=== PATIENT | female | born 1975 | race Caucasian/White ===

== ENCOUNTER 2018-11-05 10:11 | Outpatient (CLI) | payer OTHER, SELFPAY ==
--- NOTE | 2018-11-05 06:00 | DI.RAD_ITS ---
SYMPTOMS/DIAGNOSIS: CERVICAL SPONDYLOSIS, CERVICAL MEDIAL BRANCH BLOCK #1 PAIN CLINIC: Fluoroscopy Time: 29.0 Images submitted from the pain clinic demonstrate multiple needles projected over the right lateral position at the level of C 3 through C 5 in conjunction with a cervical medial branch block carried out by Dr. Wong. Please see the procedure report for further information.
[2018-11-05 10:26] VITALS: BP 135/85; PULSE 97; RESP 18; TEMP 37.1; O2SAT 100
[2018-11-05 11:03] VITALS: BP 117/73; PULSE 91; RESP 14; O2SAT 100
--- NOTE | 2018-11-05 11:03 | PDOC.PAIN ---
Pain Clinic Procedure Note Current Active Problems Problem Status Onset Cervical spondylosis Chronic CERVICAL MEDIAL BRANCH BLOCKS MARY WINSTON has been [facility] for cervical medial branch blocks. COMMENTS: Has neck pain radiating to her head and shoulder bit. She has multilevel degenerative changes. She sometimes has pain radiating to her arms. She is pending neurology evaluation and nerve testing. Patient was interviewed and the medical record reviewed. There were no medical, pharmacologic, radiographic or other structural contraindications to attempting fluoroscopically guided local anesthetic cervical medial branch blocks. Risks and expected side effects as well as potential benefit of the procedure were reviewed and voiced concerns addressed. The printed consent form was signed and witnessed. Standard time-out procedure was performed. Patient was placed in the { Left} lateral decubitus position on the fluoroscopy table and automated blood pressure cuff and pulse oximeter applied. The skin entry points for approaching the anatomic target points of the segmental medial branches of {Right C2/3 (T ON), 3, 4, 5 were identified with fluoroscopy and marked. Following thorough Chlorhexadine preparation of the skin and draping and 1% lidocaine infiltration of the skin entry points and subcutaneous tissues, a 25 gauge spinal needle was placed under fluoroscopic guidance down on to the target point for each respective segmental medial branch. Position was confirmed in A/P and leteral views with 0.25ml of omnipaque 240 injected at each level. At each point 0.3ml 0.5% bupivicaine was injected. Vital signs were stable throughout the procedure and were as recorded in the docflowsheet by the nursing staff. Follow up plans and appointments were discussed and patient was instructed to keep careful note of how the usual pain was modified by these injections. Specifically, the patient was asked to keep a pain diary for the next 24 hours using a numeric pain scale of 0-10 and report these results at the follow-up visit. Post procedure instruction was given as documented in the nursing documentation and having met discharge criteria, and was discharged from the [facility]. Based on the medial branches blocked today, if they patient has adequate relief and we are able to proceed to radiofrequency ablation, the treatment should result in the denervation of the {rightC2-3, C3-4, C4-5} {FACET JOINTS}. We would expect to denervate a total of {3} facets during the radiofrequency ablation. COMMENTS: Pain went from 6/10 to 4/10. She will follow-up for repeat medial branch block with 2% lidocaine or would consider cervical epidural steroid injection. CC: Fariba Sanders
[2018-11-05] MEDS: Omnipaque 240 MG/ML 50 ML BTL IJ (11:22)
[2018-11-05] MEDS: Bupivacaine 0.5% Pres-Free 10 ML VIAL IJ (11:23)
== END 2018-11-05 10:31 ==
PROVIDERS: PCP Family Medicine; Visit Provider Anesthesiology Pain Medicine
DX: M47.812 Spondylosis without myelopathy or radiculopathy, cervical region (principal)
CPT/HCPCS: 64490; 64491; 64492; 72040; Q9967

== ENCOUNTER 2018-11-25 11:56 | Outpatient (CLI) | payer OTHER, SELFPAY ==
--- NOTE | 2018-11-25 06:00 | DI.RAD_ITS ---
SYMPTOMS/DIAGNOSIS: CERVICAL SPONDYLOSIS, CERVICAL MEDIAL BRANCH BLOCK RT C-ARM FLUOROSCOPY OF THE CERVICAL SPINE: Fluoroscopy Time: 32.7 sec Fluoroscopy was provided for guidance with cervical spine pain clinic injection. Please see procedure note for details.
[2018-11-25 12:10] VITALS: BP 146/96; PULSE 94; RESP 16; TEMP 36.8; O2SAT 100
[2018-11-25] MEDS: Omnipaque 240 MG/ML 50 ML BTL IJ (12:45)
[2018-11-25] MEDS: Lidocaine 2% Pres-Free 5 ML VIAL IJ (12:45)
[2018-11-25 12:46] VITALS: BP 125/78; PULSE 98; RESP 17; O2SAT 100
--- NOTE | 2018-11-25 12:46 | PDOC.PAIN ---
Pain Clinic Procedure Note Current Active Problems Problem Status Onset Cervical spondylosis without myelopathy Acute CERVICAL MEDIAL BRANCH BLOCKS #2 MARY WINSTON has been referred to the [facility] for cervical medial branch blocks. COMMENTS: Great relief with the recent right sided CMBBs at C2-C5 CATRACHITO was interviewed and the medical record reviewed. There were no medical, pharmacologic, radiographic or other structural contraindications to attempting fluoroscopically guided local anesthetic cervical medial branch blocks. Risks and expected side effects as well as potential benefit of the procedure were reviewed with CATRACHITO, and CATRACHITO's voiced concerns addressed. The printed consent form was signed and witnessed. Standard time-out procedure was performed. CATRACHITOwas placed in the Left lateral decubitus position on the fluoroscopy table and automated blood pressure cuff and pulse oximeter applied. The skin entry points for approaching the anatomic target points of the segmental medial branches of Right C2-C5 were identified with fluoroscopy and marked. Following thorough Chlorhexadine preparation of the skin and draping and 1% lidocaine infiltration of the skin entry points and subcutaneous tissues, a 25 gauge spinal needle was placed under fluoroscopic guidance down on to the target point for each respective segmental medial branch. Position was confirmed in A/P and leteral views with 0.25ml of omnipaque 240 injected at each level. At each point 0.3ml 2% Lidocaine was injected. Rodrigo vital signs were stable throughout the procedure and were as recorded in the docflowsheet by the nursing staff. Follow up plans and appointments were discussed with CATRACHITO. CATRACHITO was instructed to keep careful note of how the usual pain was modified by these injections. Specifically, the patient was asked to keep a pain diary for the next 24 hours using a numeric pain scale of 0-10 and report these results at the follow-up visit. Post procedure instruction was given as documented in the nursing documentation and having met discharge criteria, Rodrigo was discharged from the [facility]. Based on the medial branches blocked today, if they patient has adequate relief and we are able to proceed to radiofrequency ablation, the treatment should result in the denervation of the right C2-C3, C3-C4, and C4-C5 FACET JOINTS. We would expect to denervate a total of 3 facets during the radiofrequency ablation. COMMENTS: She will call back with her 1-4 hour post-procedure pain scores. CC: Fariba Sanders
--- NOTE | 2018-11-25 12:49 | PDOC.PAIN_ITS ---
Pain Clinic Procedure Note Current Active Problems Problem Status Onset Cervical spondylosis without myelopathy Acute CERVICAL MEDIAL BRANCH BLOCKS #2 MARY WINSTON has been referred to the [facility] for cervical medial branch blocks. COMMENTS: Great relief with the recent right sided CMBBs at C2-C5 CATRACHITO was interviewed and the medical record reviewed. There were no medical, pharmacologic, radiographic or other structural contraindications to attempting fluoroscopically guided local anesthetic cervical medial branch blocks. Risks and expected side effects as well as potential benefit of the procedure were reviewed with CATRACHITO, and CATRACHITO's voiced concerns addressed. The printed consent form was signed and witnessed. Standard time-out procedure was performed. CATRACHITOwas placed in the Left lateral decubitus position on the fluoroscopy ta ble and automated blood pressure cuff and pulse oximeter applied. The skin entry points for approaching the anatomic target points of the segmental medial branches of Right C2-C5 were identified with fluoroscopy and marked. Following thorough Chlorhexadine preparation of the skin and draping and 1% lidocaine infiltration of the skin entry points and subcutaneous tissues, a 25 gauge spinal needle was placed under fluoroscopic guidance down on to the target point for each respective segmental medial branch. Position was confirmed in A/P and leteral views with 0.25ml of omnipaque 240 injected at each level. At each point 0.3ml 2% Lidocaine was injected. oRdrigo vital signs were stable throughout the procedure and were as recorded in the docflowsheet by the nursing staff. Follow up plans and appointments were discussed with CATRACHITO. CATRACHITO was instructed to keep careful note of how the usual pain was modified by these injections. Specifically, the patient was asked to keep a pain diary for the next 24 hours using a numeric pain scale of 0-10 and report these results at the follow-up visit. Post procedure instruction was given as documented in the nurs ing documentation and having met discharge criteria, Rodrigo was discharged from the [facility]. Based on the medial branches blocked today, if they patient has adequate relief and we are able to proceed to radiofrequency ablation, the treatment should result in the denervation of the right C2-C3, C3-C4, and C4-C5 FACET JOINTS. We would expect to denervate a total of 3 facets during the radiofrequency ablation. COMMENTS: She will call back with her 1-4 hour post-procedure pain scores. CC: Fariba Sanders
== END 2018-11-25 12:16 ==
PROVIDERS: PCP Family Medicine; Visit Provider Preventive Medicine Occupational Medicine
DX: M47.812 Spondylosis without myelopathy or radiculopathy, cervical region (principal)
CPT/HCPCS: 64490; 64491; 64492; 72040; Q9967

== ENCOUNTER 2018-12-02 07:44 | Outpatient (CLI) | payer OTHER, SELFPAY ==
[2018-12-02 07:52] VITALS: BP 140/95; PULSE 91; RESP 18; TEMP 36.8; O2SAT 100
[2018-12-02] MEDS: Midazolam 2 MG/2 ML VIAL IVP (08:38)
--- NOTE | 2018-12-02 09:16 | DI.RAD_ITS ---
SYMPTOMS/DIAGNOSIS: CERVICAL SPONDYLOSIS, CERVICAL RADIOFREQUENCY ABLATION PAIN CLINIC: Fluoroscopy Time: 51.4 sec., 3.42 mGy Images submitted from the pain clinic demonstrate positioning of needles over the superior portion of the cervical spine in conjunction with a radiofrequency ablation carried out by Dr. Matson. Please see the procedure report for further information.
--- NOTE | 2018-12-02 09:17 | PDOC.PAIN ---
Pain Clinic Procedure Note Current Active Problems Problem Status Onset Cervical spondylosis without myelopathy Acute CERVICAL MEDIAL BRANCH RADIOFREQUENCY MARY WINSTON has been referred to the [facility] for radiofrequency treatment of chronic axial neck pain. Ms. 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 Local anesthetic medial branch blocks resulted in Ms. Winston reporting a greater than 80% reduction of the usual axial component of pain and improved function for at least the duration of the local anesthetic effect. COMMENTS: She did great with the 2 CMBBs at the right C2-C5 medial branches: CATRACHITO was interviewed and the medical record reviewed. There were no medical, pharmacologic, radiographic or other structural contraindications to attempting fluoroscopically guided radiofrequency treatment. Risks and expected side effects as well as potential benefit of the procedure were reviewed with CATRACHITO, and CATRACHITO's voiced concerns addressed. The printed consent form was signed and witnessed. Standard time-out procedure was performed. Ms. WINSTON was placed in the prone position on the fluoroscopy table and automated blood pressure cuff and pulse oximeter applied. The skin entry points for approaching the anatomic target points of the segmental medial branches of right C2-C5 were identified with fluoroscopic guidence. Following thorough Chlorhexadine preparation of the skin and draping and 1% lidocaine infiltration of the skin entry points and subcutaneous tissues, a 10cm, 18 guage, 10 mm active tip radiofrequency cannula was placed under fluoroscopic guidance at the anatomic course of each respective segmental medial branch. Each placement was stimulated at 50Hz and up to 1v in attempt to reproduce some component of Ms. WINSTON?s usual pain. If this response was accomplished, the cannula was left in place. If it could not be accomplished after multiple attempts, the cannula was placed at what was felt to be the closest anatomic approximation to the segmental medial branch. Each placement was stimulated at 2Hz and up to 3v without any evidence of distal myotomal stimulation. At each placement a continuous mode radiofrequency treatment was done at 80 degrees C for 90secs This radiofrequency treatment should result in the denervation of the right C2-C3, C3-C4, and C4-C5 FACET JOINTS. A total of 3 facets were expected to be denervated from today's treatment. Ms. Wallace vital signs were stable throughout the procedure and were as recorded in the docflowsheet by the nursing staff. Follow up plans and appointments were discussed with Ms. WINSTON. Post procedure instruction was given as documented in the nursing documentation and having met discharge criteria, Ms. WINSTON's was discharged from the [facility]. COMMENTS: If this procedure gives her at least 6 months of pain relief, it can be repeated without repeating the CMBBs. CC: Fariba Sanders
[2018-12-02 09:20] VITALS: BP 137/88; PULSE 91; RESP 18; O2SAT 100
[2018-12-02] MEDS: Bupivacaine 0.5% Pres-Free 10 ML VIAL IJ (09:22)
[2018-12-02] MEDS: Lidocaine 2% Pres-Free 5 ML VIAL IJ (09:22)
[2018-12-02] MEDS: methylPREDNISolone ACETATE 40 MG/ML VIAL IJ (09:22)
--- NOTE | 2018-12-02 09:22 | PDOC.PAIN_ITS ---
Pain Clinic Procedure Note Current Active Problems Problem Status Onset Cervical spondylosis without myelopathy Acute CERVICAL MEDIAL BRANCH RADIOFREQUENCY MARY WINSTON has been referred to the [facility] for radiofrequency treatment of chronic axial neck pain. Ms. Espinal has had long standing cervic al pain thought to be facet joint generated and which has been refractory to other therapies. Local anesthetic medial branch blocks resulted in Ms. Winston reporting a greater than 80% reduction of the usual axial component of pain and improved function for at least the duration of the local anesthetic effect. COMMENTS: She did great with the 2 CMBBs at the right C2-C5 medial branches: CATRACHITO was interviewed and the medical record reviewed. There were no medical, pharmacologic, radiographic or other structural contraindications to attempting fluoroscopically guided radiofrequency treatment. Risks and expected side effects as well as potential benefit of the procedure were reviewed with CATRACHITO, and CATRACHITO's voiced concerns addressed. The printed consent form was signed and witnessed. Standard time-out procedure was performed. Ms. WINSTON was placed in the prone position on the fluoroscopy table and automated blood pressure cuff and pulse oximeter applied. The skin entry points for approaching the anatomic target points of the segmental medial branches of right C2-C5 were identified with fluoroscopic guidence. Following thorough Chlorhexadine preparation of the skin and draping and 1% lidocaine infiltration of the skin entry points and subcutaneous tissues, a 10cm, 18 guage, 10 mm active tip radiofrequency cannula was placed under fluoroscopic guidance at the anatomic course of each respective segmental medial branch. Each placement was stimulated at 50Hz and up to 1v in attempt to reproduce some component of Ms. WINSTON?s usual pain. If this response was accomplished, the cannula was left in place. If it could not be accomplished after multiple attempts, the cannula was placed at what was felt to be the closest anatomic approximation to the segmental medial branch. Each placement was stimulated at 2Hz and up to 3v without any evidence of distal myotomal stimulation. At each placement a co ntinuous mode radiofrequency treatment was done at 80 degrees C for 90secs This radiofrequency treatment should result in the denervation of the right C2- C3, C3-C4, and C4-C5 FACET JOINTS. A total of 3 facets were expected to be denervated from today's treatment. Ms. Wallace vital signs were stable throughout the procedure and were as recorded in the docflowsheet by the nursing staff. Follow up plans and appointments were discussed with Ms. WINSTON. Post procedure instruction was given as documented in the nursing documentation and having met discharge criteria, Ms. WINSTON'rosemary was discharged from the [facility]. COMMENTS: If this procedure gives her at least 6 months of pain relief, it can be repeated without repeating the CMBBs. CC: Fariba Sanders
[2018-12-02] MEDS: Lactated Ringers 1,000 ML 80 ML IV (09:38)
== END 2018-12-02 08:04 ==
PROVIDERS: PCP Family Medicine; Visit Provider Preventive Medicine Occupational Medicine
DX: M47.812 Spondylosis without myelopathy or radiculopathy, cervical region (principal); G89.29 Other chronic pain
CPT/HCPCS: 64633; 64634 ×2; 72040; J1030; J2250

== ENCOUNTER 2019-03-30 17:51 | Outpatient (REF) | payer OTHER, SELFPAY ==
[2019-03-30 19:26] LABS: Bilirubin Negative (Negative); Blood Trace-intact (Negative); Clarity Clear (Clear); Glucose Negative (Negative); Ketones Negative (Negative); Leukocyte Esterase Trace (Negative); Nitrite Negative (Negative); Specific Gravity <= 1.005 (1.005-1.025); Urobilinogen 0.2 EU/dL (Up TO 0.2)
[2019-03-30 19:36] LABS: Bacteria Rare HPF (Negative); C & S Indicated? Yes; Casts Negative LPF (Negative); Crystals Negative HPF (Negative); Epithelial Cells Negative HPF (Negative); Mucus Negative (Negative); RBC 0-2 (0-2); WBC 0-2 HPF (0-5)
== END 2019-03-30 18:11 ==
LOC: NCHCN 17:51
PROVIDERS: PCP Family Medicine; Visit Provider Family Medicine
DX: R10.9 Unspecified abdominal pain (principal)
CPT/HCPCS: 81003; 81015; 87086

== ENCOUNTER 2019-04-06 05:07 | Emergency (ER) | payer OTHER, SELFPAY ==
[2019-04-06 05:12] VITALS: BP 155/98; PULSE 94; RESP 16; TEMP 36.6; O2SAT 99
--- NOTE | 2019-04-06 05:15 | W.ED.GENAD ---
Discharge Plan Disposition Patient Disposition: HOME Condition: Stable Discharge Details Chief Complaint: Urinary Clinical Impression: Urinary tract infection Primary Care Provider: Fariba Sanders ED Provider: Moise Mckeon Home Meds and New Rx's Prescriptions: New ciprofloxacin HCl 500 mg tablet 500 mg PO BID Qty: 10 RF: 0 Continued duloxetine [Cymbalta] 60 mg capsule,delayed release(DR/EC) 60 mg PO DAILY RF: 0 acetaminophen [Tylenol Arthritis Pain] 650 mg tablet extended release 650 mg PO DAILY RF: 0 ranitidine HCl [Zantac 75] 75 mg tablet 75 mg PO HS PRNRF: 0 ketoconazole 2 % cream 1 applic TP BID RF: 0 magnesium citrate 125 mg capsule 250 mg PO DAILY RF: 0 omeprazole 20 mg capsule,delayed release(DR/EC) 20 mg PO DAILY RF: 0 meloxicam 7.5 MG tablet 15 mg PO DAILY RF: 0 selenium sulfide 118 ML suspension 118 ml Topical DAILY RF: 0 fluticasone propionate 16 GM spray,suspension 2 spray NS HS RF: 0 Discharge Instructions Instructions: Urinary Tract Infection in Women (ED) Additional Instructions: follow up with your primary care provider if symptoms continue this week if you have fevers, persistent vomit or feel more ill return to the emergency department Medical Decision Making 44 yo female comes in with urinary frequency and burning since last night and some lower back discomfort. She has not had fevers, chlls, vomit or abdominal pain. She arrives in no distress without abdominal tendereness, no cva tenderness. Given urinary symptoms suspect cystitis vs early pyelo, will check ua and monitor pt's UA consistent with likely uti, given low back pain will tx for possible early pyelo. Will d/c and have her f/u with pcp and return precautions given Differential Diagnosis Differential Diagnosis: uti, pyelo Lab Data Lab results reviewed: Yes I reviewed the patient's lab results. HPI General Mode of arrival: ambulatory. Date/Time Provider Initiated Documentation: 04/06/19 05:09. Limitations to Documentation: no limitations. Information obtained by: patient. History of Present Illness 44 year old F presents to the emergency department with the chief complaint of urinary frequency/burning, Patient started experiencing this day(s) (1) and it has been constant. No relieving factors improve symptom(s), No exacerbating factors reported . Patient did receive the following treatments prior to arrival, none Related Data Home Medications Medication Instructions Recorded Confirmed fluticasone propionate 2 spray NS HS 02/21/15 04/06/19 meloxicam 15 mg PO DAILY tab-cap 11/12/16 04/06/19 selenium sulfide 118 ml TOPICAL DAILY script 11/12/16 04/06/19 acetaminophen 650 mg 650 mg PO DAILY tab 10/28/18 04/06/19 tablet,extended release duloxetine 60 mg capsule,delayed 60 mg PO DAILY 10/28/18 04/06/19 release ketoconazole 2 % topical cream 1 applic TP BID 10/28/18 04/06/19 ranitidine HCl 75 mg tablet 75 mg PO HS PRN tab 10/28/18 04/06/19 magnesium citrate 125 mg capsule 250 mg PO DAILY cap 01/07/19 04/06/19 omeprazole 20 mg capsule,delayed 20 mg PO DAILY 02/18/19 04/06/19 release ciprofloxacin HCl 500 mg PO BID #10 tab 04/06/19 Previous Rx's Medication Instructions Recorded ciprofloxacin HCl 500 mg PO BID #10 tab 04/06/19 Allergies Allergy/AdvReac Type Severity Reaction Status Date / Time glycerin Allergy Intermediate Verified 04/06/19 05:16 adhesive tape Allergy Skin Rash Verified 04/06/19 05:16 docusate sodium AdvReac Mild Rash Verified 04/06/19 05:16 [From Dulcolax Stool Softener (DSS)] fentanyl AdvReac Mild Itching Verified 04/06/19 05:16 Review of Systems Review of Systems ROS Unobtainable: All systems reviewed & are unremarkable except as noted in HPI and below Constitutional Constitutional: Denies chills and Denies fever(s) Cardiovascular Cardiovascular: Denies dyspnea Respiratory Respiratory: Denies cough and Denies dyspnea Gastrointestinal Gastrointestinal: Denies abdominal pain, Denies nausea and Denies vomiting Musculoskeletal Musculoskeletal: Denies joint swelling [facility] Social History Smoking/Tobacco Use Status: Never Alcohol Intake: never Drug use: Never Household members: spouse and children Housing: house Number of Children: 4 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 What is your relationship status?: Panel score (0-1 are the most socially isolated patients): 1 Do you feel safe in your relationship?: Yes Exam Const General: no acute distress Orientation: alert HENMT Head: normal to inspection Ears: external ears normal General nose exam: external nose normal Mouth: moist mucous membranes Eyes General: appearance normal, both eyes and all related structures Neck Neck: normal visual inspection Resp Effort & Inspection: normal respiratory effort and able to speak in complete sentences Cardio Rate: regular rate Back/Spine/Pelvis Back: no CVA tenderness Skin General skin exam: no rashes or lesions noted Neuro General: alert and oriented x3 Extrem General: normal to inspection Psych Mental Status: mental status grossly normal
[2019-04-06 05:31] LABS: Bilirubin Negative (Negative); Blood Trace-intact (Negative); Clarity Clear (Clear); Glucose Negative (Negative); Ketones Negative (Negative); Leukocyte Esterase Small (Negative); Nitrite Negative (Negative); Specific Gravity <= 1.005 (1.005-1.025); Urobilinogen 0.2 EU/dL (Up TO 0.2); pH 5.5 (5-8)
[2019-04-06 05:38] LABS: Bacteria Rare HPF (Negative); C & S Indicated? C&S Done As Ordered; Casts Negative LPF (Negative); Crystals Negative HPF (Negative); Epithelial Cells Few HPF (Negative); Mucus Negative (Negative); RBC 0-2 (0-2); WBC 0-2 HPF (0-5)
[2019-04-06] MEDS: Ciprofloxacin 500 MG TAB PO (05:55)
== END 2019-04-06 06:06 | disposition home or self-care (01) ==
PROVIDERS: Emergency Provider Emergency Medicine; PCP Family Medicine
DX: N39.0 Urinary tract infection, site not specified (principal)
CPT/HCPCS: 99283; 81003; 81015; 87086

== ENCOUNTER 2019-04-27 17:16 | Outpatient (REF) | payer OTHER, SELFPAY ==
[2019-04-27 18:41] LABS: Anion Gap 10.3 mmol/L (3-11); BUN 11 mg/dL (7-18); CO2 26.7 mmol/L (21.0-32.0); CREATININE 0.68 mg/dL (0.55-1.02); Calcium 9.2 mg/dL (8.5-10.1); Chloride 103 mmol/L (98-107); Glucose 108 mg/dL (70-100); Potassium 3.9 mmol/L (3.5-5.1); Sodium 140 mmol/L (136-145)
[2019-04-27 18:54] LABS: HCT 41.6 % (36.0-46.0); HGB 13.2 g/dL (12.0-15.5); Mean Corp. HGB Concentration 31.7 g/dL (32.0-36.0); Mean Corpuscular Hemoglobin 28.5 pg (27.0-33.0); Mean Corpuscular Volume 89.8 fL (80-95); Mean Platelet Volume 10.9 fL (8.0-11.0); Platelet Count 397 x1000/uL (130-400); RBC 4.63 m/cumm (4.00-5.20); RBC Distribution Width 14.1 % (11.7-14.6); White Blood Cell Count 9.15 k/cumm (4.4-10.8)
== END 2019-04-27 17:36 ==
LOC: NCHCN 17:16
PROVIDERS: PCP Family Medicine; Visit Provider Family Medicine
DX: Z00.00 Encounter for general adult medical examination without abnormal findings (principal); Z13.0 Encounter for screening for diseases of the blood and blood-forming organs and certain disorders involving the immune mechanism; Z13.228 Encounter for screening for other metabolic disorders
CPT/HCPCS: 80048; 85027

== ENCOUNTER 2019-11-26 11:52 | Outpatient (REF) | payer OTHER, SELFPAY | END 2019-11-26 12:12 | LOC: NCHCN 11:52 | PROVIDERS: PCP Family Medicine; Visit Provider Nurse Practitioner Family | DX: N89.8 Other specified noninflammatory disorders of vagina (principal); L29.8 Other pruritus | CPT/HCPCS: 87480; 87510; 87660 ==

== ENCOUNTER 2019-12-15 12:02 | Outpatient (CLI) | payer OTHER, SELFPAY ==
[2019-12-16 13:01] LABS: COVID-19 RT-PCR Result NEGATIVE (Negative)
== END 2019-12-15 12:22 ==
PROVIDERS: PCP Family Medicine; Visit Provider Podiatrist
DX: Z11.59 Encounter for screening for other viral diseases (principal)
CPT/HCPCS: U0003

== ENCOUNTER 2019-12-18 06:21 | Day surgery (SDC) | payer OTHER, SELFPAY ==
[2019-12-18 06:25] VITALS: BP 130/97; PULSE 93; RESP 18; TEMP 36.7; O2SAT 99
[2019-12-18] MEDS: Lactated Ringers 1,000 ML 80 ML IV (07:05)
--- NOTE | 2019-12-18 07:21 | HPE_ITS ---
Date of service: 12/18/19 Time of Service: 07:21 History of Present Illness History of Present Illness Chief Complaint: 44-year-old female with pain associated with a right bunion and hammertoe Narrative: 44-year-old female with progressive pain associated with a right bunion and second hammertoe deformity interfering with comfortable shoe gear and ambulatory activities. Nonsurgical treatments have failed to provide sufficient relief of symptoms. She is opting for surgical correction. [facility] Medical History Bilateral carpal tunnel syndrome (Chronic) Chronic neck pain (Chronic) Depression Deviated nasal septum Hiatal hernia Insomnia Irritable bowel syndrome Nephrolithiasis Pain, joint, ankle, left Scoliosis TMJ (dislocation of temporomandibular joint) (Acute) Urinary incontinence Surgical History H/O right knee surgery (Acute) History of ankle surgery (Acute) History of hysterectomy (Chronic) History of lithotripsy (Acute) History of tubal ligation (Chronic) Social History Smoking/Tobacco Use Status: Never Alcohol Intake: never Drug use: Never Substance use type: does not use Household members: spouse and children Housing: house Number of Children: 4 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 What is your relationship status?: Panel score (0-1 are the most socially isolated patients): 1 Do you feel safe at home: Yes Do you feel safe in your relationship?: Yes Meds Home Medications and Allergies Home Medications Medication Instructions Recorded Confirmed Type fluticasone propionate 2 spray NS HS 02/21/15 12/18/19 History meloxicam 15 mg PO DAILY tab-cap 11/12/16 12/18/19 History selenium sulfide 118 ml TOPICAL DAILY script 11/12/16 12/16/19 History acetaminophen 650 mg 650 mg PO DAILY tab 10/28/18 12/18/19 History tablet,extended release duloxetine 60 mg capsule,delayed 60 mg PO DAILY 10/28/18 12/18/19 History release ketoconazole 2 % topical cream 1 applic TP BID 10/28/18 12/18/19 History omeprazole 20 mg capsule,delayed 20 mg PO DAILY 02/18/19 12/18/19 History release ciprofloxacin HCl 500 mg PO BID #10 tab 04/06/19 Rx Allergies Allergy/AdvReac Type Severity Reaction Status Date / Time glycerin Allergy Intermediate Verified 12/18/19 06:37 adhesive tape Allergy Skin Rash Verified 12/18/19 06:37 docusate sodium AdvReac Mild Rash Verified 12/18/19 06:37 [From Dulcolax Stool Softener (DSS)] fentanyl AdvReac Mild Itching Verified 12/18/19 06:37 hydromorphone [From Dilaudid] AdvReac Mild Itching Unverified 12/18/19 06:37 Exam Narrative Exam Narrative: Head is normocephalic, eyes PERRLA, hearing is adequate, heart had regular rate and rhythm without gallops rubs or murmurs, lung rmaon were clear, abdomen was soft nontender bowel sounds x4. Peripheral pulses are manually palpable at the ankles graded 2 out of 4 bilaterally capillary refills under 3 seconds to all toes. No peripheral edema. Skin is grossly intact. Muscle groups of 5 out of 5 bilaterally. Examination of the right foot specifically reveals a moderate HAV deformity with a large medial bump with periarticular tenderness to direct palpation range of motion is within normal limits with minor restriction of dorsiflexion and range of motion. Mild lateral tracking appreciated. Semirigid right second hammertoe deformity is appreciated with contracture at the PIPJ and medial deviation at the MPJ level. Neurologically she appears grossly intact. Impressions: Symptomatic right HAV deformity second hammertoe deformity Plan: Kriss is being brought to the OR for surgical repair of right bunion and second hammertoe deformity. She understands risk and complications of surgery pertaining to pain scarring infection, stiffness of the joints, recurrence of deformities. Overcorrection under correction of the deformity. Malunion nonunion delayed union's of the osteotomies were attempted fusions. All quest ions have been answered in detail no promises to follow-up with surgery. Results Last Vital Signs Temp 36.7 C 12/18/19 06:25 Pulse 93 H 12/18/19 06:25 Resp 18 12/18/19 06:25 BP 130/97 H 12/18/19 06:25 Pulse Ox 99 12/18/19 06:25 COVID-19 Screening In the past 14 days, have you traveled outside of [place] or [place]?: NO
[2019-12-18] MEDS: ceFAZolin 1 GM/50 ML BAG IVPB (07:35)
[2019-12-18] MEDS: Lidocaine 1% Multi-Dose 50 ML VIAL (07:42)
[2019-12-18] MEDS: Bupivacaine 0.5% Pres-Free 30 ML VIAL (07:42)
[2019-12-18] MEDS: Dexamethasone 4 MG/ML VIAL (08:55)
--- NOTE | 2019-12-18 09:09 | PDOC.DSDIS_ITS ---
Discharge Plan Disposition Patient Disposition: HOME Condition: Good Discharge Details Reason For Visit: bunionectomy/hammertoe repair right foot Attending Provider: Barber Man Primary Care Provider: Fariba Sanders Home Meds and New Rx's Prescriptions: New ibuprofen 600 mg tablet 600 mg PO Q6H PRN (Reason: pain and inflamation) Qty: 40 RF: 1 hydrocodone-acetaminophen [Mccurtain] 5-325 mg tablet 1 tab PO Q6H PRN (Reason: pain) Qty: 7 RF: 0 Continued duloxetine [Cymbalta] 60 mg capsule,delayed release(DR/EC) 60 mg PO DAILY RF: 0 acetaminophen [Tylenol Arthritis Pain] 650 mg tablet extended release 650 mg PO DAILY RF: 0 ketoconazole 2 % cream 1 applic TP BID RF: 0 omeprazole 20 mg capsule,delayed release(DR/EC) 20 mg PO DAILY RF: 0 meloxicam 7.5 MG tablet 15 mg PO DAILY RF: 0 selenium sulfide 118 ML suspension 118 ml Topical DAILY RF: 0 fluticasone propionate 16 GM spray,suspension 2 spray NS HS RF: 0 ciprofloxacin HCl 500 mg tablet 500 mg PO BID Qty: 10 RF: 0 Discharge Instructions Stand Alone Forms: Donovan's Instructions-DSU, Ivett Alfaro (DSU) Activity:: Elevate Remove Dressings/Wound Care:: Do Not Remove Shower/Bathe:: Cover Diet:: Normal Diet Discharge Orders Discharge Orders: Discharge Order (Routine); Ordered 12/18/19 Ordered By: Barber Man
--- NOTE | 2019-12-18 09:21 | ROE_ITS ---
Date of service: 12/18/19 Time of Service: 09:21 Operative Note Operative Note DATE OF PROCEDURE: 12/18/19 PRE-OP DIAGNOSIS: Right bunion and right second hammertoe deformities POST-OP DIAGNOSIS: same PROCEDURE: 1. For skin type bunionectomy with internal screw fixation utilizing 2.7 Synthes cortical screws x2 2. Arthrodesis right second toe with 0.062 K wire fixation SURGEON: Barber Man ANESTHESIA: GETA ESTIMATED BLOOD LOSS: 1 PATHOLOGY: none sent TOURNIQUET TIME: 68 COMPLICATIONS: None Patient was transported to: same day Patient's condition: stable Implants: 2.7 mm Synthes cortical screws x2, 0.62 K wire second toe Indications: 44-year-old female with progressive pain associated with a right bunion second hammertoe deformity interfering with shoe gear and daily activities ambulation. Nonoperative treatments fail to provide sufficient relief of symptoms. Findings: Hallux abductovalgus deformity is appreciated with periarticular tenderness around the first MPJ, semirigid right second hammertoe deformity noted with tenderness over the proximal interphalangeal joint second digit Procedure Description: Kriss was brought to the operative suite placed in the supine position with a right foot prepped and draped in the usual sterile podiatric fashion. Timeout was performed by protocol. Anesthesia being obtained through general anesthetic and a local block of the right first and s econd rays utilizing 20 cc of a 50: 52, 1% lidocaine plain, 0.5% Marcaine plain. The right foot was prepped and draped in the usual sterile podiatric fashion. Tourniquet was inflated once the foot was exsanguinated to 250 mmHg. Attention was directed to the dorsal medial aspect of the right foot where a 5 cm incision was placed dorsally and medial parallel to the EHL tendon. The incision was d eepened in controlled depth fashion hemostasis acquired with electrocautery as needed. Dissection was carried down to the joint capsule. Lateral contracture of the joint was appreciated so a lateral capsulotomy and adductor tendon release was performed. The fibular sesamoid was mobilized. Attention was now directed medially where an inverted L capsulotomy was performed the head of the first metatarsal was delivered into the surgical wound degenerative change was appreciated over the dorsal medial aspect of the joint with hypertrophy medially observed. With power instrumentation the medial and dorsal hyperostosis was resected. An offset V osteotomy was then performed from the medial side of the first metatarsal head. The metatarsal head was translocated laterally and impacted. Good correction of deformity was noted. Stabilization was performed utilizing 2 Synthes 2.7 cortical screws 14 mm and 16 mm in length. The medial shelf was then resected with power instrumentation all rough and bony edges rasped smooth and copious irrigation performed. A medial capsulorrhaphy was performed and the joint capsule repaired with simple interrupted suture 3-0 Vicryl. The subcutaneous layer was then repaired with 4-0 Vicryl in a running subcuticular stitch of 4-0 Monocryl was used to coapt the skin. Attention was now directed to the dorsal aspect of the right second toe with 2 converging semi-elliptical incisions were placed over the proximal interphalangeal joint. Skin wedge was removed and soft tissue mobilization performed. A transverse tenotomy capsulotomy was performed at the PIPJ level with a #15 scalpel and the medial lateral collateral was released. With power instrumentation the cartilage was removed from both sides of the joint. A PEG was then fashioned from the head of the proximal phalanx and a hole created in the base of the middle phalanx and the 2 toes were compressed together in a peg and hole position. Fixation was then achieved with a 0.062 K wire. The second toes in rectus position. The extensor tendon was repaired with simple interrupted suture 3-0 Vicryl skin was coapted with simple interrupted suture of 4-0 nylon 4 mg of dexamethasone phosphate was infused about the first MPJ. Betadine ointment applied to the K wire. Xeroform applied to the incision of the second toe Mastisol half-inch Steri-Strips applied to the bunion incision then covered by Xeroform. Gauze fluff compression dressings were applied and the tourniquet was released at approximately 68 minutes vascularity returning immediately to all toes. Sharp and sponge counts were correct. Bridgette left the OR with vital signs stable vascular status intact she will be followed by myself in the office next week.
[2019-12-18 09:40] VITALS: BP 153/74; PULSE 80; RESP 16; TEMP 36.1; O2SAT 100
== END 2019-12-18 10:20 | disposition home or self-care (01) ==
PROVIDERS: PCP Family Medicine; Visit Provider Podiatrist
PROC: (CPT 28292; principal; 2019-12-18 07:30)
PROC: (CPT 28285; 2019-12-18 07:30)
DX: M20.11 Hallux valgus (acquired), right foot (principal); M20.41 Other hammer toe(s) (acquired), right foot; M21.611 Bunion of right foot
CPT/HCPCS: 28296; 28285; NC; J0131; J0690; J1100; J1885; J2001; J2405

== ENCOUNTER 2020-01-28 09:10 | Outpatient (CLI) | payer OTHER, SELFPAY ==
--- NOTE | 2020-01-28 06:00 | DI.RAD_ITS ---
EXAM: XR PAIN CLINIC CERVICAL SP 2V CLINICAL HISTORY: Dx: Cervical Spondylosis TECHNIQUE: COMPARISON: No exams were available for comparison FINDINGS: C-arm fluoroscopy was utilized by Dr. Matson during reported cervical radiofrequency ablation. Hard co py show needle placement over the posterior elements of the spine at what appear to be the C2-3, C3-4 , and C4-5 levels. Fluoro time, 54.9 seconds. IMPRESSION:
[2020-01-28 09:30] VITALS: BP 126/90; PULSE 93; RESP 20; TEMP 37; O2SAT 99
[2020-01-28] MEDS: Lactated Ringers 1,000 ML 80 ML IV (10:07)
[2020-01-28] MEDS: Midazolam 2 MG/2 ML VIAL IVP (10:13)
[2020-01-28 10:49] VITALS: BP 135/95; PULSE 95; RESP 14; O2SAT 100
[2020-01-28] MEDS: Lidocaine 2% Pres-Free 5 ML VIAL IJ (11:07)
[2020-01-28] MEDS: Dexamethasone Sod. Phos./Pres-Free 10 MG/ML VIAL IJ (11:08)
[2020-01-28] MEDS: Bupivacaine 0.5% Pres-Free 10 ML VIAL IJ (11:08)
--- NOTE | 2020-01-28 12:27 | PDOC.PAIN ---
Pain Clinic Procedure Note Procedure Note Procedure Note: Cervical Radiofrequency with Coolief Machine PROCEDURE NOTE Date of Service: January 28, 2020 Patient: MARY WINSTON Provider: Sam Matson DO, MPH Pre Operative Diagnosis: Cervical spondylosis without myelopathy Post Operative Diagnosis: Same PROCEDURE: 1. Right C2 medial branch radiofrequency denervation 2. Right C3 medial branch radiofrequency denervation 3. Right C4 medial branch radiofrequency denervation 4. Right C5 medial branch radiofrequency denervation MARY WINSTON was brought to the operating room and placed on the exam table in a comfortable prone position. The place for the needle placement was obtained by manual palpation as well as radiographic confirmation. The sterile field was prepped by chlorhexidine and sterile drapes. Local anesthesia, both superficial and deep was provided by local infiltration of 8 ml Lidocaine 1%. Using fluoroscopic guidance, A 17g 50 mm radiofrequency introducer needle with a 2 mm active tip was placed overlying the right C2 cervical vertebra from the posterior approach and was advanced until bony contact was felt with the articular pillar. The needle was walked off the pillar, maintaining contact with the bone. Attempted aspiration revealed no blood or cerebrospinal fluid. Radiographs were then made in AP and lateral. Motor testing was then performed with 2.0 volts and no upper extremity motor stimulation was observed. 0.5 cc of the 1% Lidocaine was injected through the RF needle. A radiofrequency lesion of the right medial branch of C2 was then performed at 80 degrees Celsius for 2 minutes and 30 seconds. The same procedure was repeated for right C3, C4 and C5 medial branches. POST PROCEDURE EVALUATION: Follow up plans and appointments were discussed with the [facility] . Post procedure instruction was given as documented in nursing documentation and having met discharge criteria, MARY was discharged from the [facility]. COMMENTS: No complications. F/U with our office as needed. I personally performed this entire procedure. Sam Matson DO, MPH Attending Physician
== END 2020-01-28 09:30 ==
PROVIDERS: PCP Family Medicine; Visit Provider Preventive Medicine Occupational Medicine
DX: M47.812 Spondylosis without myelopathy or radiculopathy, cervical region (principal)
CPT/HCPCS: 64633; 64634; 72040; J2250

== ENCOUNTER 2020-07-05 00:53 | Outpatient (CLI) | payer OTHER, SELFPAY ==
--- NOTE | 2020-07-05 | DI.US_ITS ---
EXAM: CERVICALGIA,WITH MYOFASCIAL AND FACETOGENIC FIBROMYALGIA,MILD CARPAL TUNNEL COMPARISON: No exams were available for comparison TECHNIQUE: Ultrasound performed using standard protocol. FINDINGS: Sonography was provided for Dr. Matson during the performance of a trigger point injection. Please re kiah to the procedure report for complete details. DATA REPOSITORY:
[2020-07-05 10:23] VITALS: BP 110/78; PULSE 86; RESP 18; TEMP 37.1; O2SAT 99
[2020-07-05 11:21] VITALS: PULSE 87; O2SAT 100
[2020-07-05] MEDS: Lidocaine 2% Pres-Free 5 ML VIAL IJ (11:22)
[2020-07-05] MEDS: methylPREDNISolone ACETATE 40 MG/ML VIAL IJ (11:23)
--- NOTE | 2020-07-05 12:05 | PDOC.PAIN ---
Pain Clinic Procedure Note Procedure Note Procedure Note: Date of service: 07/05/2020 ULTRASOUND GUIDED BILATERAL TRAPEZIUS MUSCLE TRIGGER POINT INJECTIONS DX: Muscle pain Pre-Procedural Evaluation: MARY WINSTON has been referred to the [facility] for an Ultrasound Guided bilateral trapezius muscle injections for a chief complaint of bilateral shoulder/neck pain. Pre-procedure Pain Score: 5/10 Patient was interviewed and the medical record reviewed. There were no medical, pharmacologic, radiographic, or other structural contraindications to preforming an ultrasound guided injection. Risks and expected side effects as well as potential benefits of the procedure were reviewed. The patient consent form was signed and witnessed. Standard time-out procedure was performed. The use of direct ultrasound visualization of the needle (rather than a non-guided injection) was required to increase patient safety by excluding inadvertent intramuscular, intratendinous, or intraneural needle placement and minimizing bleeding by avoiding osteochondral or vascular injury from the needle. Additionally, the increased accuracy of placement may increase clinical effectiveness and will allow higher diagnostic specificity when evaluating effectiveness of this injection. Procedure Description: The patient was placed in the prone position and automated blood pressure cuff and pulse oximeter applied for monitoring during the procedure and recorded in the medical record. Pre-injection ultrasound scanning of the area of interest was performed using linear transducer, identifying relevant anatomy, landmarks, and neurovascular structures allowing for optimal needle path. The site was then prepared in the usual sterile fashion, using thorough Chlorhexadine preparation of the skin and sterile draping. The same ultrasound transducer was then passed into the sterile field using sterile probe cover and sterile ultrasound gel. The injection target was again visualized. Skin and subcutaneous tissues were anesthetized with 1 mL of 1% Lidocaine. A 22 guage PaiPipeline US 3.4 ultrasound needle was placed under live ultrasound guidance, using an in-plane approach, to the target area. After visualization of the needle tip at the target area, a mixture of 2 mL 2% Lidocaine and 1/2 mL depomedrol (40 mg/cc) to each side, totaling 2.5 mL of injectate was delivered after negative aspiration for blood. Ultrasound images were captured and stored for documentation purposes. Post-procedure Pain Score:1/10 Vital signs were stable throughout the procedure and were as recorded in the docflowsheet by the nursing staff. Follow up plans and appointments were discussed with the patient.Post procedure instruction was given as documented in nursing documentation and having met discharge criteria, they were discharged from the [facility]. COMMENTS: If this procedure is found to be helpful, it can be completed up to 3 times per 12 months. Sam Matson DO, MPH Pain Management
== END 2020-07-05 01:13 ==
PROVIDERS: PCP Family Medicine; Visit Provider Preventive Medicine Occupational Medicine
DX: M54.2 Cervicalgia (principal)
CPT/HCPCS: 20552; 76942; J1030

== ENCOUNTER 2021-04-24 16:35 | Outpatient (REF) | payer OTHER, SELFPAY | END 2021-04-24 16:36 | disposition home or self-care (01) | LOC: NCHCN 16:35 | PROVIDERS: PCP Family Medicine; Visit Provider Family Medicine | DX: N89.8 Other specified noninflammatory disorders of vagina (principal) | CPT/HCPCS: 87480; 87510; 87660 ==

== ENCOUNTER 2021-05-24 09:41 | Outpatient (REF) | payer OTHER, SELFPAY ==
[2021-05-24 15:43] LABS: Hemoglobin A1C 5.7 % (<5.7)
[2021-05-24 16:14] LABS: Glucose 93 mg/dL (74-106)
== END 2021-05-24 09:42 | disposition home or self-care (01) ==
LOC: NCHCN 09:41
PROVIDERS: PCP Family Medicine; Visit Provider Family Medicine
DX: Z00.00 Encounter for general adult medical examination without abnormal findings (principal)
CPT/HCPCS: 82947; 83036

== ENCOUNTER 2022-01-01 10:03 | Outpatient (REF) | payer OTHER, SELFPAY ==
[2022-01-01 15:34] LABS: Hemoglobin A1C 5.9 % (<5.7)
[2022-01-01 23:38] LABS: Calculated LDL 144 mg/dL (<100); Cholesterol 234 mg/dL (<200); HDL Cholesterol 70 mg/dL (40-60); Triglyceride 103 mg/dL (<150)
== END 2022-01-01 10:04 | disposition home or self-care (01) ==
LOC: NCHCN 10:03
PROVIDERS: PCP Family Medicine; Visit Provider Family Medicine
DX: R73.03 Prediabetes (principal); E78.79 Other disorders of bile acid and cholesterol metabolism
CPT/HCPCS: 80061; 83036

== ENCOUNTER 2022-02-13 03:52 | Outpatient (CLI) | payer OTHER, SELFPAY ==
--- NOTE | 2022-02-13 14:00 | NS.NUTBLAN_ITS ---
Bridgette was referred to nutritional counseling for pre diabetes. A1C 2020: 5.7%, February 02: 5.9% 5'3 139 lbs BMI: 24.5 Bridgette reports that she lost over 20 lbs last year. Her highest weight was 159 lbs in summer of 2020. 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 She never has gestational diabetes with her 4 pregnancies and has no fam hx of DM2. Her 89 yo father was just dx with pre diabetes as well. Diet Recall: B: eggs with keto wrap, L: sandwich, D: chicken, 1/2 cup starch, veggies. Snacks: cottage cheese, no sugar cocoa. Overall, follows a low sugar diet with focus on high fiber carbs, lean protein and non starchy vegetables. Exercise: less in summer as not on her feet as much as during school year Session today focused on how to follow a meal plan for optimal glycemic control by following a 1500 kcal diet with 80-100 g carb, 60-80 g protein, 45-55 g fat. Encouraged 30 min of exercise daily or 150 min per week. It is unclear why her A1C has been elevated despite 20 lbs weight loss and low carb diet. Plan: Keep carb intake to less than 100 grams carbs daily pair carbs with protein avoid high sugar beverages/foods walk 1-2 miles daily
== END 2022-02-13 03:53 | disposition home or self-care (01) ==
LOC: DS 03:52
PROVIDERS: PCP Family Medicine; Visit Provider Dietitian, Registered
DX: R73.03 Prediabetes (principal); Z71.3 Dietary counseling and surveillance
CPT/HCPCS: 97802

== ENCOUNTER 2022-08-03 15:50 | Emergency (ER) | payer OTHER, SELFPAY ==
[2022-08-03 15:55] VITALS: BP 170/91; PULSE 88; RESP 16; TEMP 36.7; O2SAT 100
--- NOTE | 2022-08-03 16:30 | DI.RAD_ITS ---
Exam(s) XR ELBOW LT COMPLETE EXAM: XR ELBOW LT COMPLETE CLINICAL HISTORY: crush injury,pain. TECHNIQUE: 2D digital imaging was performed of the left elbow. Four images were obtained. AP, late ral and oblique views were obtained. COMPARISON: No exams were available for comparison FINDINGS: BONES: No acute fracture is present. No bony destructive lesion is seen. JOINTS: The elbow is normally aligned. No joint effusion is seen. SOFT TISSUE: Normal. IMPRESSION: Unremarkable radiographs of the left elbow. DATA REPOSITORY: RADIATION DOSE DELIVERED:
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
--- NOTE | 2022-08-03 17:37 | DI.VRAD_ITS ---
PROCEDURE INFORMATION: Exam: XR Left Elbow Exam date and time: 08/03/2022 4:43 PM Age: 47 years old Clinical indication: Injury or trauma; Other: Crush injury, pain; Injury date: 3 weeks ago TECHNIQUE: Imaging protocol: Radiologic exam of the Left elbow. Views: 3 or more views. COMPARISON: No relevant prior studies available. FINDINGS: Bones/joints: There is no evidence of acute fracture.There is no evidence of malalignment or dislocation. Soft tissues: Normal. IMPRESSION: No acute findings. Dictated and Authenticated by: Michael Galvez MD. Ordering:CHRIS Euceda MD
--- NOTE | 2022-08-05 08:54 | NUR.NOTE ---
Accessed chart for [facility] billing purposes.Nursing Note:
== END 2022-08-03 18:03 | disposition home or self-care (01) ==
PROVIDERS: Emergency Provider Physician Assistant; PCP Family Medicine
DX: G89.11 Acute pain due to trauma (principal); M25.522 Pain in left elbow; V03.10XA Pedestrian on foot injured in collision with car, pick-up truck or van in traffic accident, initial encounter
CPT/HCPCS: 99283; 73080; 99282

== ENCOUNTER 2023-02-07 09:07 | Day surgery (SDC) | payer OTHER, SELFPAY ==
[2023-02-07 09:15] VITALS: BP 138/98; PULSE 86; RESP 16; TEMP 36.6; O2SAT 99
--- NOTE | 2023-02-07 09:34 | W.ANESPRE ---
General Info Date of Service Date Performed: 02/07/23 Height: 5 ft 4 in Weight: 67 kg Body Mass Index (BMI): 25.3 Surgical Procedure: Operation Date: 02/07/23 10:05 Proposed Procedure Side Surgeon salbador Garcia, Meds Allergies and Home Medications Allergies Allergy/AdvReac Type Severity Reaction Status Date / Time glycerin Allergy Intermediate Verified 02/06/23 10:33 adhesive tape Allergy Skin Rash Verified 02/06/23 10:33 fentanyl AdvReac Mild Itching Verified 02/06/23 10:33 hydromorphone [From Dilaudid] AdvReac Mild Itching Unverified 02/06/23 10:33 Home Medication Medication Instructions Recorded fluticasone propionate 50 2 spray NS HS 02/21/15 mcg/actuation nasal spray,suspension acetaminophen 650 mg 650 mg PO DAILY 10/28/18 tablet,extended release (Tylenol Arthritis Pain) ketoconazole 2 % topical cream 1 applic topical BID 10/28/18 cetirizine 10 mg tablet 10 mg PO DAILY 07/05/20 bupropion HCl 100 mg tablet,12 hr 100 mg PO DAILY 09/03/22 sustained-release (Wellbutrin SR) famotidine 20 mg tablet 20 mg PO DAILY PRN 09/12/22 bisacodyl 5 mg tablet,delayed 5 mg PO ONCE #4 tabs 01/31/23 release (Dulcolax (bisacodyl)) polyethylene glycol 3350 17 17 g PO ONCE #238 grams 01/31/23 gram/dose oral powder Current Visit Medications: Current Medications Generic Name Dose Route Start Last Admin Trade Name Sukhiq PRN Reason Stop Dose Admin Ringer's Solution 1,000 mls @ 80 mls/hr 02/07/23 06:00 IV 03/08/23 23:59 [facility] IV Miscellaneous Supplies 1 each 02/07/23 06:00 Iv Access IV 03/08/23 23:59 DIRECTED [facility] Ondansetron HCl 4 mg 02/07/23 07:33 Ondansetron 4 Mg/2 Ml Vial IVP 03/09/23 07:32 Q4H PRN PRN Nausea / Vomiting Sodium Chloride 0 ml 02/07/23 06:00 Normal Saline Flush 10 Ml Syr IV 03/08/23 23:59 PRN PRN Sodium Chloride 0 ml 02/07/23 06:00 Normal Saline 10 Ml Vial IJ 03/08/23 23:59 DIRECTED PRN Sterile Water 0 ml 02/07/23 06:00 Water,Injection,Sterile 10 Ml Vial IJ 03/08/23 23:59 DIRECTED PRN PFSH Active Problems Active Problems: Problem Status Onset Code Lateral epicondylitis, left elbow M77.12 Fibromyalgia M79.7 Paresthesia R20.2 Prediabetes R73.03 Screening for colon cancer Z12.11 Cervical spondylosis M47.812 Cervical spondylosis without myelopathy M47.812 Medical History Medical History Bilateral carpal tunnel syndrome Chronic neck pain Depression Deviated nasal septum Hiatal hernia Insomnia Irritable bowel syndrome Nephrolithiasis Pain, joint, ankle, left Right knee pain Scoliosis Tinea pedis TMJ (dislocation of temporomandibular joint) Urinary incontinence Surgical History Surgical History H/O right knee surgery History of ankle surgery History of bunionectomy History of hysterectomy History of lithotripsy History of tubal ligation Tobacco Smoking/Tobacco Use Status: Never Alcohol Alcohol Intake: never Substance Use Substance use: Never Substance use type: does not use Vital Signs and Lab Results Vital Signs Most Recent Vital Signs in EMR: Most Recent Vital Signs Temp Pulse Resp BP Pulse Ox 36.6 C 86 16 138/98 H 99 02/07/23 09:15 02/07/23 09:15 02/07/23 09:15 02/07/23 09:15 02/07/23 09:15 Lab Results Blood Type / Crossmatch: No Data to Display Complete Blood Count: No Data to Display Complete Metabolic Panel: No Data to Display Liver Function Panel: No Data to Display Coagulation Panel: No Data to Display Cardiac Panel: No Data to Display Arterial Blood Gas: No Data to Display Venous Blood Gas: No Data to Display Pancreas Panel: No Data to Display Thyroid Panel: No Data to Display Infectious Disease: No Data to Display Blood Cultures: No Data to Display Toxicology Panel: No Data to Display Panel: No Data to Display Anesthesia Assessment and Plan Anesthesia History Personal History: No History of Anesthesia Complications Family History: No Family History of Anesthesia Complications Exercise Tolerance Exercise Tolerance: Metabolic Equivalents>4 Pertinent Negatives Pertinent Negatives: No Symptoms of GERD, No Major Cardiovascular Symptoms or Complaints, No Major Pulmonary Symptoms or Complaints and No History of CVA/TIA Cardiac & Pulmonary Exam Cardiac Exam: Normal S1/S2 Heart Sounds Pulmonary Exam: Clear Bilateral Breath Sounds Implantable Cardiac Device Does patient have a Pacemaker or an ICD?: No Airway Exam Known Difficult Airway: No Mallampati Class: 2 Mouth Opening: Normal (> 3cm) Thyromental Distance: Greater than 3 cm Neck Range of Motion: Full ROM Neck Circumference: Normal Teeth Condition: Normal Dentition Airway Comments: Some loss of gum at 41/31 ASA Classification ASA Score: ASA 2 Emergency Case?: No NPO Status NPO Status: NPO Clears >2 hours, Solids >8 hours Status Status: History of Hysterectomy Anesthesia Plan Resuscitation Status: Full Code Anesthesia Technique: General Anesthesia Airway Planned: Natural Airway Monitors Used: Standard Monitors Preoperative Comments:: 47 yo female for colonoscopy Hx: left elbow epicondylitis, fibromyalgia, paresthesia, cervical osteoarthritis and spondylosis, hiatal hernia, TMJ.
[2023-02-07] MEDS: Lactated Ringers 1,000 ML 80 ML IV (09:43)
[2023-02-07 09:47] VITALS: BMI 25.3
--- NOTE | 2023-02-07 10:35 | BOWEL_PTH ---
PATIENT: Bridgette Toribio LOC: [facility] U#:[id number] AGE/SX: 47/F ROOM: RE02/07/[address]: Denise Garcia : 1975 BED: DIS: 02/07/2023 SPEC #: [id number] RECD: 02/07/23 15:35 STATUS: JJ RECarlos #: [id number] JANEL: 02/07/23 10:[address]: Denise Garcia DEPT: Surgical Specimen RECD BY: Luisa Laura ENTERED: 02/07/23 15:35 SP TYPE: Bowel OTHR DR: Fariba Sanders Tissues: 1 - BIOPSY BOWEL 2 - BIOPSY BOWEL 3 - BIOPSY BOWEL 4 - BIOPSY BOWEL Procedures: GROSS AND MICRO LEVEL 4 Comments: [id number]
[2023-02-07 10:47] VITALS: BP 122/79; PULSE 77; RESP 17; TEMP 36.5; O2SAT 99
--- NOTE | 2023-02-07 10:54 | COLE_ITS ---
Date of service: 02/07/23 Time of Service: 10:54 Colonoscopy Report Date of procedure: 02/07/23 Pre-op diagnosis general: Colon cancer screening history of/alternating constipation and diarrhea and Post-op diagnosis procedure note: other (Polyps) Surgeon: Denise Garcia Anesthesia Type: General:No Airway Estimated blood loss (mL): 1 Pathology: other Complications: None Disposition: same day Prep: Miralax/Dulcolax Retraction Time: 15 Procedure Description: After informed consent was obtained the patient was taken to the procedure room and placed in a left decubitous position. Monitors were applied and a time out was done. The patients name, date of , procedure, allergies to medications and metal in their body was reviewed. The patient was then sedated. Once sedated and comfortable a rectal exam was done. External exam was normal. Internal exam revealed a normal sphincter tone and no palpable masses. The scope was then introduced and retrofelexed. No internal hemorrhoids were identified. The scope was then advanced to the cecum Without difficulty. The TI and appendiceal orifice were identified. The prep was BBPS 3 in all segments for total of 9. The scope was then slowly retracted over 15 minutes back into the rectum. She had a 0.75 cm pedunculated polyp at 70 cm. This is removed with a cold biting forcep. She also had a flat 5 mm polyp adjacent to this which was removed with a cold biting forcep as well. Because of her history of irregular bowels and NSAID intolerance, biopsies were taken at 90/40 cm and the rectum. The mucosa is pink and healthy with a normal vascular jhony staci. There are no diverticula or AVMs noted. The scope was removed and the patient was woken up and taken back to Same day surgery in stable condition. The patient tolerated the procedure well and there were no immediate complications. Follow up: The patient should follow up in 5-7years, path pd, unless they develop changes in bowel habits or other new gastrointestinal complaints.
--- NOTE | 2023-02-07 10:59 | PDOC.DSDIS_ITS ---
Date of service: 02/07/23 Time of Service: 10:59 Discharge Plan Disposition Patient Disposition: Home Condition: Good Discharge Details Reason For Visit: colon scope Attending Provider: Denise Garcia Primary Care Provider: Fariba Sanders Home Meds and New Rx's Prescriptions: Continued famotidine 20 mg tablet 20 mg PO DAILY PRN acetaminophen [Tylenol Arthritis Pain] 650 mg tablet extended release 650 mg PO DAILY ketoconazole 2 % cream 1 applic TP BID bupropion HCl [Wellbutrin SR] 100 mg tablet sustained-release 12 hr 100 mg PO DAILY fluticasone propionate 16 GM spray,suspension 2 spray NS HS cetirizine 10 mg Tablet 10 mg PO DAILY Discontinued bisacodyl [Dulcolax (bisacodyl)] 5 mg tablet,delayed release (DR/EC) 5 mg PO ONCE Qty: 4 0RF Rx Instructions: Take per colonoscopy instructions provided by ordering providers office polyethylene glycol 3350 17 gram/dose powder 17 g PO ONCE Qty: 238 0RF Rx Instructions: Take per colonoscopy instructions provided by ordering providers office Discharge Instructions Additional Instructions: DSU Colonoscopy Post- Op Instructions Instructions for Everyone who is given Anesthesia: For your safety, please do the following for the next twenty-four (24) hours: *Do Not operate a motor vehicle (car, truck, motorcycle, etc.) *Do Not drink alcoholic beverages or use any recreational drugs for the first 24 hours or while taking pain medications. The medications in your body may have a reaction that can be dangerous. *Do Not make any important decisions or sign any important papers. Findings: x2 small polyps Follow up: My office will send you a letter in 2 to 3 weeks time with results of the biopsy and when we want you to repeat the colonoscopy. 1. No lifting over 20 pounds or strenuous activity for the first 24 hours after your procedure. After 24 hours there are no restrictions on your activity but you may feel fatigued for a few days. 2. After you arrive home you may have a light meal and return to your normal diet as you can tolerate it without feeling sick to your stomach. 3. You may have a bloated, gaseous feeling in your belly (abdomen) after a colonoscopy. Passing gas and belching will help. Walking or lying down on your left side with your knees flexed may relieve the discomfort. Call the office at [phone] (Office) or [phone] (Hospital) right away if you notice any of the following: a.Vomiting of blood or ?coffee ground stools?. b.Rectal bleeding 1Tbsp, blood clots or continuous bleeding. c.Severe belly (abdominal) pain. d.A hard distended belly (abdomen) and an inability to pass gas. 4. Please don?t expect to have a normal BM (bowel movement) for 2-3 days after your procedure. 5. If there are questions regarding the findings of your procedure, please contact your doctor 6. If you are unable to contact your doctor with a problem, contact the hospital at [phone]. 7. Continue all your regular medications unless directed otherwise. I understand the above instructions and have no questions. Signature of Patient or Adult Escort Name of Responsible Adult Escort Signature of Nurse Date/Time Activity:: See above Diet:: See above Discharge Orders Discharge Orders: Discharge Order (Routine); Ordered 02/07/23 Ordered By: Denise Garcia DS: Diagnosis Discharge Diagnosis (1) Adenomatous polyps: Status: Acute Asessment and Plan: The patient is seen and examined after their colonoscopy.? The patient has been able to pass gas.? They are not having abdominal pain.? They have been able to tolerate liquids and a snack.? They do not have any nausea or vomiting.? They are not having any chest pain or shortness of breath.??? They are not having any rectal bleeding. Their vital signs have been stable-see nursing notes. We discussed findings during their colonoscopy, and any biopsies that were done/polyps that were removed. The patient will be sent a letter with any biopsy results, and when to repeat the colonoscopy.-see discharge instructions. Patient was given explicit instructions to follow-up regarding colonoscopy-refer to discharge instructions.? We reviewed resumption of medications. Patient verbalized understanding and discharged in stable and satisfactory condition- See nursing notes.
--- NOTE | 2023-02-07 11:13 | W.ANESPOSTOP ---
Postoperative Evaluation Date, Time and Location Date Performed: 02/07/23 Time Performed: 11:13 Patient Location: Day Surgery Unit Vital Signs Most Recent Imported Vital Signs: Most Recent Vital Signs Temp Pulse Resp BP Pulse Ox 36.5 C 77 17 122/79 99 02/07/23 10:47 02/07/23 10:47 02/07/23 10:47 02/07/23 10:47 02/07/23 10:47 Pain Score Most Recent Pain Score: Most Recent Pain Score Pain Level 0 02/07/23 10:47 Assessment Mental Status: Arousable with meaningful communication Airway and Respiratory Function: Patent airway with normal (patient baseline) respiratory exam Cardiovascular Function: Hemodynamically Stable Hydration Status: Adequately Hydrated Nausea & Vomiting: No Nausea or Vomiting Pain: Pt. Denies Any Pain Peripheral Nerve Block: Patient did not receive a nerve block
[2023-02-07 11:17] VITALS: BP 118/80; PULSE 77; RESP 18; TEMP 36.9; O2SAT 98
== END 2023-02-07 11:30 | disposition home or self-care (01) ==
PROVIDERS: PCP Family Medicine; Visit Provider Surgery
PROC: 0DJD8ZZ Inspection of Lower Intestinal Tract, Via Natural or Artificial Opening Endoscopic (ICD-10-PCS; CPT 45378; principal; 2023-02-07 10:00)
DX: Z12.11 Encounter for screening for malignant neoplasm of colon (principal); K63.5 Polyp of colon; R73.03 Prediabetes; K58.2 Mixed irritable bowel syndrome
CPT/HCPCS: 45380; 88305

== ENCOUNTER 2023-05-10 18:26 | Outpatient (REF) | payer OTHER, SELFPAY | END 2023-05-10 18:27 | disposition home or self-care (01) | LOC: NCHCN 18:26 | PROVIDERS: PCP Family Medicine; Visit Provider Family Medicine | DX: L29.8 Other pruritus (principal) | CPT/HCPCS: 87480; 87510; 87660 ==

== ENCOUNTER → 2023-05-28 00:07 | Outpatient (CLI) | payer OTHER, SELFPAY ==
--- NOTE | 2023-05-28 | DI.MAMMO_ITS ---
Exam(s) MAMMO SCREENING EXAM: MAMMO SCREENING CLINICAL HISTORY: Z12.39 Screening. TECHNIQUE: Bilateral full field digital CC and MLO mammographic images were obtained with 3D tomosyn thesis and utilizing computer aided detection (CAD). COMPARISON: None. This is a baseline mammogram on 48-year-old patient FINDINGS: Fibroglandular tissue pattern is moderately dense. There are no spiculated masses. There is a microcalcification group in the left breast located medial of center approximately 3 cm in from the nipple which will require spot Mag view. There is no significant architectural distortion nor skin thickening-retraction. IMPRESSION: 1. No radiographic evidence of malignancy in right breast. 2., microcalcification group in the left breast which require spot Mag views. BI-RADS Category 0 - Assessment Incomplete: Need additional imaging evaluation Breast Density - Category C - Heterogeneously dense Breast density Category C or D implies that the patient has dense breast tissue. Dense breast tissue can make it harder to find cancer on a mammogram. Dense breast tissue is also associated with an incr eased risk of breast cancer. This information about the result of the mammogram report was provided to the patient to raise their awareness. Use this report when you speak with the patient about their risks for breast cancer, which includes their family history. At that time, you may recommend additional screening tests (Ultrasoun d or MRI) as these tests may add significant information. A negative radiographic report should not delay biopsy if a dominant or clinically suspicious mass is present. Up to ten percent of cancers are not identified on mammography. A negative report may reinforce clinical impression. Adenosis and dense breasts may obscure an underlying neoplasm. False positive reports average 6 to 10%. Patient will receive a letter notifying them of these results.
== END ==
PROVIDERS: PCP Family Medicine; Visit Provider Family Medicine
DX: Z12.31 Encounter for screening mammogram for malignant neoplasm of breast (principal)
CPT/HCPCS: 77063; 77067

== ENCOUNTER → 2023-06-07 00:13 | Outpatient (CLI) | payer OTHER, SELFPAY ==
--- NOTE | 2023-06-07 | DI.US_ITS ---
Exam(s) US BREAST RT COMPLETE MG MAMMO DIAGNOSTIC BI EXAM: MG MAMMO DIAGNOSTIC BI and U/S breast RT complete CLINICAL HISTORY: F/U MAMMO, MICROCALCIFICATION IN LT BREAST,R92.8 RT BREAST SPOT PERDR HESS. TECHNIQUE: Craniocaudal and mediolateral oblique Full Field Digital Mammography views of the bilater al breast with Computer Aided Diagnosis followed by Tomosynthesis and right breast ultrasound. COMPARISON: Comparison is made with baseline examination. FINDINGS: Mammography/Tomosynthesis: Masses/Architectural Distortion: There is a question of an area of architectural distortion in the re troareolar region of the right breast. A spot compression view is obtained. The area of concern is less prominent than on the prior examination. Microcalcifictions: No suspicious pleomorphic-type are seen. The punctate calcifications seen in the left breast show no pleomorphism. No suspicious microcalcifications are seen. Skin Thickening/Nipple Retraction: None. Complete right breast US: Echotexture: There is dense fibroglandular tissue seen including at the 1 o'clock position of the rig ht breast but no discrete mass is seen, particularly under real-time imaging. Shadowing: No suspicious foci. Cyst: None. Solid lesions: None seen. Ductal dilation: None. IMPRESSION: 1. No definite evidence of malignancy is noted. 2. A 3 month follow-up right mammogram is requested for re-evaluation. Ultrasound may be indicated a t that time. 3. The findings were discussed with the patient on the date of the examination. BI-RADS Category 3 - Probably Benign Finding: Recommend follow-up imaging in 3 months Breast Density - Category C - Heterogeneously dense Breast density Category C or D implies that the patient has dense breast tissue. Dense breast tissue can make it harder to find cancer on a mammogram. Dense breast tissue is also associated with an incr eased risk of breast cancer. This information about the result of the mammogram report was provided to the patient to raise their awareness. Use this report when you speak with the patient about their risks for breast cancer, which includes their family history. At that time, you may recommend additional screening tests (Ultrasoun d or MRI) as these tests may add significant information. A negative radiographic report should not delay biopsy if a dominant or clinically suspicious mass is present. Up to ten percent of cancers are not identified on mammography. A negative report may reinforce clinical impression. Adenosis and dense breasts may obscure an underlying neoplasm. False positive reports average 6 to 10%. Patient will receive a letter notifying them of these results.
== END ==
PROVIDERS: PCP Family Medicine; Visit Provider Family Medicine
CPT/HCPCS: 76642; 77062; 77066; G0279

== ENCOUNTER 2023-08-07 02:59 | Outpatient (CLI) | payer OTHER, SELFPAY ==
[2023-08-07 20:28] LABS: ALT 18 U/L (14-59); AST 14 U/L (15-37); Albumin 4.1 g/dL (3.4-5.0); Alkaline Phosphatase 91 U/L (46-116); Bilirubin, Direct 0.1 mg/dL (0.0-0.2); Bilirubin, Total 0.2 mg/dL (0.2-1.0); Total Protein 7.6 g/dL (6.4-8.2)
== END 2023-08-07 03:00 | disposition home or self-care (01) ==
LOC: LBO 02:59
PROVIDERS: PCP Family Medicine; Visit Provider Family Medicine
DX: Z51.81 Encounter for therapeutic drug level monitoring (principal)
CPT/HCPCS: 36415; 80076

== ENCOUNTER → 2023-09-20 00:04 | Outpatient (CLI) | payer OTHER, SELFPAY ==
--- NOTE | 2023-09-20 | DI.US_ITS ---
Exam(s) MG MAMMO DIAGNOSTIC UNI US BREAST RT LIMITED EXAM: MG MAMMO DIAGNOSTIC UNI and U/S breast RT limited CLINICAL HISTORY: HETEROGENEOUSLY DENSE BREAST R92.331 RIGHT SIDE. TECHNIQUE: Craniocaudal and mediolateral oblique Full Field Digital Mammography views of the right b reast with Computer Aided Diagnosis followed by Tomosynthesis and right breast ultrasound. COMPARISON: Comparison is made with prior examinations. FINDINGS: Mammography/Tomosynthesis: Masses/Architectural Distortion: None seen. Microcalcifictions: No suspicious pleomorphic-type are seen. Skin Thickening/Nipple Retraction: None. Limited right breast US: Echotexture: Normal appearance of the glandular tissue. Shadowing: No suspicious foci. Cyst: None. Solid lesions: None seen. Ductal dilation: None. IMPRESSION: 1. No definite evidence of malignancy is noted. 2. A six-month follow-up right mammogram is requested for re-evaluation. 3. The findings were discussed with the patient on the date of the examination. BI-RADS Category 3 - 6 month - Probably Benign Finding: Recommend follow-up imaging in 6 months Breast Density - Category C - Heterogeneously dense Breast density Category C or D implies that the patient has dense breast tissue. Dense breast tissue can make it harder to find cancer on a mammogram. Dense breast tissue is also associated with an incr eased risk of breast cancer. This information about the result of the mammogram report was provided to the patient to raise their awareness. Use this report when you speak with the patient about their risks for breast cancer, which includes their family history. At that time, you may recommend additional screening tests (Ultrasoun d or MRI) as these tests may add significant information. A negative radiographic report should not delay biopsy if a dominant or clinically suspicious mass is present. Up to ten percent of cancers are not identified on mammography. A negative report may reinforce clinical impression. Adenosis and dense breasts may obscure an underlying neoplasm. False positive reports average 6 to 10%. Patient will receive a letter notifying them of these results.
== END ==
PROVIDERS: PCP Family Medicine; Visit Provider Family Medicine
DX: R92.331 Mammographic heterogeneous density, right breast (principal); Z12.31 Encounter for screening mammogram for malignant neoplasm of breast
CPT/HCPCS: 76642; 77061; 77065; G0279

== ENCOUNTER 2024-05-11 21:36 | Outpatient (REF) | payer OTHER, SELFPAY ==
[2024-05-11 19:27] LABS: ALT 14 U/L (14-59); AST 23 U/L (15-37); Alkaline Phosphatase 101 U/L (46-116); BUN 17 mg/dL (7-18); Bilirubin, Total 0.27 mg/dL (0.2-1.0); CREATININE 0.7 mg/dL (0.55-1.02); Calcium 10.4 mg/dL (8.5-10.1); Chloride 102 mmol/L (98-107); Estimated GFR 107.28 (mL/min/1.73m2); Glucose 105 mg/dL (74-106); Potassium 4.8 mmol/L (3.5-5.1); Sodium 139 mmol/L (136-145); Total Protein 8.3 g/dL (6.4-8.2)
== END 2024-05-11 21:37 | disposition home or self-care (01) ==
LOC: NCHCN 21:36
PROVIDERS: PCP Family Medicine; Visit Provider Family Medicine
DX: I10 Essential (primary) hypertension (principal)
CPT/HCPCS: 80053

== ENCOUNTER 2024-06-09 01:37 | Outpatient (CLI) | payer OTHER, SELFPAY ==
--- NOTE | 2024-06-09 | DI.MAMMO_ITS ---
Exam(s) MG MAMMO DIAGNOSTIC BI EXAM: MAMMO DIAGNOSTIC BI CLINICAL HISTORY: 6-mo f/u rt mammo, R92.8-abnl and inconclusive findings on DI TECHNIQUE: Bilateral full field digital CC and MLO mammographic images were obtained with 3D tomosyn thesis and utilizing computer aided detection (CAD). COMPARISON: Available for comparison. FINDINGS: Masses/Architectural Distortion: None seen. Microcalcifications: No suspicious pleomorphic-type are seen. Skin Thickening/Nipple Retraction: None. IMPRESSION: 1. No significant interval change with no specific features of malignancy noted. 2. Unless there is more urgent need, screening mammography is recommended, as per [employer] guidelines. 3. Findings were discussed with the patient on the date of the examination. BI-RADS Category 1 - Negative Breast Density - Category C - Heterogeneously dense Breast density category C or D implies that the patient has dense breast tissue. Dense breast tissue is very common and is not abnormal but dense breast tissue can make it harder to find cancer on a ma mmogram. Also, dense breast tissue may increase their breast cancer risk. This information about the result of the mammogram report was provided to the patient to raise their awareness. Use this report when you speak with the patient about their risks for breast cancer, which includes their family hist ory. At that time, you may recommend for more screening tests (Ultrasound or MRI) as they might be us eful based on their risk. A negative radiographic report should not delay biopsy if a dominant or clinically suspicious mass is present. Up to ten percent of cancers are not identified on mammography. A negative report may reinforce clinical impression. Adenosis and dense breasts may obscure an underlying neoplasm. False positive reports average 6 to 10%. Patient will receive a letter notifying them of these results.
== END 2024-06-09 01:57 ==
LOC: DI 01:37
PROVIDERS: PCP Family Medicine; Visit Provider Family Medicine
DX: Z12.31 Encounter for screening mammogram for malignant neoplasm of breast (principal); R92.8 Other abnormal and inconclusive findings on diagnostic imaging of breast
CPT/HCPCS: 77062; 77066; G0279

== ENCOUNTER 2024-07-06 08:50 | Emergency (ER) | payer OTHER, SELFPAY ==
[2024-07-06 08:52] VITALS: BP 157/86; PULSE 91; RESP 18; TEMP 37; O2SAT 99
--- NOTE | 2024-07-06 09:00 | W.ED.GENAD ---
Discharge Plan Disposition Patient Disposition: Home Condition: Stable Discharge Details Clinical Impression: Contusion of right foot Primary Care Provider: Fariba Sanders ED Provider: Fernando Cole Home Meds and New Rx's Prescriptions: Continued famotidine 20 mg tablet 20 mg PO DAILY PRN acetaminophen [Tylenol Arthritis Pain] 650 mg tablet extended release 650 mg PO DAILY ketoconazole 2 % cream 1 applic TP BID PRN fluticasone propionate 16 GM spray,suspension 2 spray NS HS naproxen sodium 220 mg capsule 220 mg PO BID PRN guaifenesin [Mucus Relief ER] 1,200 mg tablet extended release 12hr 1,200 mg PO DAILY PRN omeprazole 10 mg capsule,delayed release(DR/EC) 10 mg PO DAILY cetirizine 10 mg Tablet 10 mg PO DAILY Discharge Instructions Instructions: Foot Sprain ED Additional Instructions: You were seen in the emergency department for the sprain/contusion of your right foot, there is no acute fracture on x-ray, please continue wrapping it as needed and naresh taping her toe, follow-up with orthopedics for any persistent pain lasting longer than 2 weeks, rest, ice, compress and elevate the foot often, please use therapeutic dosing of Tylenol (acetamenophen) & Advil (ibuprofen) in an alternating fashion as follows: Take 1000mg of Tylenol every 6 hours without missing doses- that is 4 times per day. [facility] in between the Tylenol dosings, take 400-600mg of Advil also on a 6 hour schedule, that is also 4 times per day. The daily maximum dosing of Tylenol is 4000mg, and the daily maximum dosing of Advil is 2400mg. This is safe to do for weeks. Please note that some common cold medications & prescription pain medications may contain acetamenophen and you need to read OTC drug labels and factor that in to maximum daily dosings. Return to the emergency department for any signs of neurovascular compromise to the foot Referrals: Fariba Sanders MD [Primary Care Provider] - Discharge Data Discharge Date/Time-TO BE ENTERED AT DEPARTURE: 07/06/24 10:30 HPI General Date/Time Provider Initiated Documentation: 07/06/24 09:00. HPI Narrative: 49 year-old female presents to ED today by POV/ambulating with a chief complaint of R foot injury, was taking tires out of the back of the car and one landed on her foot- lateral foot/ball of foot pain with onset two weeks ago. Quality described as sharp pain worse with weight-bearing, no radiation to redness, bruising, inability to move foot, ankle pain. Severity is described as moderate. Palliating factors include RICE therapy, APAP/NSAIDs with some relief. Provoking factors include nothing specific. Patient not anticoagulated. Related Data Home Medications ?Medication ?Instructions ?Recorded ?Confirmed fluticasone propionate 50 2 spray NS HS 02/21/15 07/06/24 mcg/actuation nasal spray,suspension acetaminophen 650 mg 650 mg PO DAILY 10/28/18 07/06/24 tablet,extended release (Tylenol Arthritis Pain) ketoconazole 2 % topical cream 1 applic topical BID PRN 10/28/18 07/06/24 cetirizine 10 mg tablet 10 mg PO DAILY 07/05/20 07/06/24 famotidine 20 mg tablet 20 mg PO DAILY PRN 09/12/22 07/06/24 guaifenesin 1,200 mg tablet, 1,200 mg PO DAILY PRN 07/06/24 07/06/24 extended release 12 hr (Mucus Relief ER) naproxen sodium 220 mg capsule 220 mg PO BID PRN 07/06/24 07/06/24 omeprazole 10 mg capsule,delayed 10 mg PO DAILY 07/06/24 07/06/24 release Allergies Allergy/AdvReac Type Severity Reaction Status Date / Time glycerin Allergy Intermediate Other (See Verified 07/06/24 08:55 Comment) adhesive tape Allergy Skin Rash Verified 07/06/24 08:55 fentanyl AdvReac Mild Itching Verified 07/06/24 08:55 hydromorphone (From Dilaudid) AdvReac Mild Itching Unverified 07/06/24 08:55 General Stated Complaint: Orthopedic LIZABETH: 4 Review of Systems All systems reviewed & are unremarkable except as noted in HPI and below Exam Narrative Exam Narrative: GENERAL APPEARANCE: Well-nourished, non-toxic, awake and alert, atraumatic, no acute distress. SKIN: Warm, pink, dry, intact, without rashes/lesions/ulcerations. HEAD: Normocephalic, atraumatic, normal hair distribution for gender/age. EYES: Normal conjunctiva, no exudates on lids/lashes. ENT: Nares patent, no circumoral cyanosis, no facial swelling NECK: Supple, trachea midline, painless cervical ROM. LUNGS/CHEST: Non-labored respirations, normal A/P diameter, symmetrical expansion, no chest wall deformity HEART (CV/PV): Regular rate, R dorsalis pedis pulse 2+, no peripheral edema, no JVD. ABDOMEN: Soft, non-distended, no guarding. MSK: Normal ROM, no swelling/deformity to bilateral UEs or LEs, moving all extremities without weakness, no cyanosis, spine midline without tenderness, normal curvature, tenderness to the right lateral ball of foot, no visible deformity, very mild swelling to the fourth toe, right dorsalis pedis pulse 2+, no ankle tenderness, no ecchymosis, no crepitus NEURO: Mental Status AAOx4 - alert to person, place, time, events No facial droop, no forehead involvement. Motor: No focal weakness - strength 5/5 in bilateral UEs and LEs, proximal and distal, symmetric. Sensory: sensation intact to light touch globally. Gait antalgic. PSYCH: euthymic, cooperative, pleasant, appropriate speech Course Vital Signs Vital signs: Vital Signs Temperature 37.0 C 07/06/24 08:52 Pulse 91 H 07/06/24 08:52 Respiratory Rate 18 07/06/24 08:52 Blood Pressure 157/86 H 07/06/24 08:52 Pulse Oximetry 99 07/06/24 08:52 Temperature 37.0 C 07/06/24 08:52 Temperature Source Oral 07/06/24 08:52 Pulse 91 H 07/06/24 08:52 Respiratory Rate 18 07/06/24 08:52 Blood Pressure 157/86 H 07/06/24 08:52 Blood Pressure Position Sitting 07/06/24 08:52 Pulse Oximetry 99 07/06/24 08:52 Oxygen Delivery Method Room Air 07/06/24 08:52 Oxygen Flow Rate 0 07/06/24 08:52 Pain Level 7 07/06/24 08:52 Medical Decision Making This dictation utilizes [id number] dictation software and may contain unedited grammatical errors. 49 year-old female presents to ED today by POV/ambulating with a chief complaint of R foot injury, was taking tires out of the back of the car and one landed on her foot- lateral foot/ball of foot pain with onset two weeks ago. Quality described as sharp pain worse with weight-bearing, no radiation to redness, bruising, inability to move foot, ankle pain. Severity is described as moderate. Palliating factors include RICE therapy, APAP/NSAIDs with some relief. Provoking factors include nothing specific. Patients' medical history: Noncontributory. Family and social history: Noncontributory. Pertinent exam findings / vital signs include tenderness to the right lateral ball of foot, no visible deformity, very mild swelling to the fourth toe, right dorsalis pedis pulse 2+, no ankle tenderness, no ecchymosis, no crepitus. Differential / pathologies of concern include fracture, contusion, sprain/strain, unlikely Lisfranc. Diagnostic studies of: -XR right foot-shows no acute fracture. Interventions of: -Lawrence wrap recommend continued RICE therapy and follow-up with orthopedics for any complications. ED Course/Assessment/Plan: 49-year-old female presents with right foot pain for 2 weeks, has been doing conservative treatment at home, x-rays negative for acute fracture, recommend she follow-up with orthopedics for any further complications or strict return criteria for signs of infection or redness or spreading redness from the area. Findings not consistent with fracture, neurovascular compromise. Disposition of Contusion of Right Foot. Patient verbalized understanding of the plan and return to ED criteria and engaged in shared decision making. Medical Records Medical records reviewed: Yes I reviewed the patient's medical records. Imaging Data Radiologic Study: Attestation: I personally reviewed and interpreted this imaging study as follows: Imaging: X-Ray Radiologist's impression: EXAM: XR FOOT RT COMPLETE CLINICAL HISTORY: R foot pain. TECHNIQUE: 2D digital imaging was performed. Three views. COMPARISON: No exams were available for comparison FINDINGS: BONES: No acute fracture is present. No bony destructive lesion is seen. Fusion at the 2nd proximal interphalangeal joint. Bunion surgery at the 1st metatarsal. Two screws are in place. JOINTS: No dislocation present. SOFT TISSUE: Normal. IMPRESSION: Postsurgical changes. No acute abnormality. Quality:SDOH Health Related Social Needs: No Data to Display PFSH All Active Problems (Updated 07/06/24 @ 10:05 by BENSON Ortiz) Contusion of right foot (Acute) Adenomatous polyps (Acute) Lateral epicondylitis, left elbow (Acute) Fibromyalgia (Acute) Paresthesia (Acute) Prediabetes (Acute) Screening for colon cancer (Acute) Cervical spondylosis (Chronic) Cervical spondylosis without myelopathy (Acute) Medical History Right knee pain Tinea pedis Bilateral carpal tunnel syndrome Chronic neck pain TMJ (dislocation of temporomandibular joint) Hiatal hernia Irritable bowel syndrome Deviated nasal septum Pain, joint, ankle, left Nephrolithiasis Depression Urinary incontinence Scoliosis Insomnia Surgical History History of colonoscopy History of bunionectomy History of tubal ligation History of lithotripsy History of hysterectomy H/O right knee surgery History of ankle surgery Social History Smoking/Tobacco Use Status: Never Smoking risk assessment performed?: Yes Alcohol Intake: never Drug use: Never Substance use type: does not use Household members: spouse and children Housing: house Number of Children: 4 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
== END 2024-07-06 10:30 | disposition home or self-care (01) ==
PROVIDERS: Emergency Provider Physician Assistant; PCP Family Medicine
DX: S90.31XA Contusion of right foot, initial encounter (principal); W22.8XXA Striking against or struck by other objects, initial encounter; Y93.89 Activity, other specified; Y92.89 Other specified places as the place of occurrence of the external cause
CPT/HCPCS: 99283; 73630

== ENCOUNTER 2024-10-29 09:46 | Outpatient (CLI) | payer OTHER, SELFPAY ==
[2024-10-29 15:38] LABS: HCT 43.5 % (36.0-46.0); HGB 13.6 g/dL (11.2-15.7); MCHC 31.3 % (32.0-36.0); MCV 90 fL (80-95); MPV 10.2 fL (8.0-11.0); Platelet Count 330 10^3/uL (130-400); RBC 4.85 10^6/uL (3.93-5.22); RDW 13.8 % (11.7-14.6); RDW-SD 45.1 fL; WBC 11.75 10^3/uL (4.4-10.8)
[2024-10-29 15:56] LABS: Albumin 3.8 g/dL (3.4-5.0); Calcium 9.4 mg/dL (8.5-10.1)
[2024-10-29 16:03] LABS: Hemoglobin A1C 5.8 % (<5.7)
[2024-10-30 17:58] LABS: Parathyroid Hormone,Intact 44 pg/mL (19-88)
== END 2024-10-29 09:47 | disposition home or self-care (01) ==
LOC: LBO 09:46
PROVIDERS: PCP Family Medicine; Visit Provider Family Medicine
DX: I10 Essential (primary) hypertension (principal); R73.03 Prediabetes; E83.52 Hypercalcemia
CPT/HCPCS: 36415; 85027; 82040; 82310; 83036; 83970